=== PATIENT | male | born 1950 | race Caucasian/White ===

== ENCOUNTER → 2016-11-16 | Outpatient (CLI) | payer OTHER ==
[2014-04-26 15:14] VITALS: BP 119/67
[~2016-11-16] MED LIST: NS 100 ML IV 100 ML IV ONE
[2016-11-16 09:54] LABS: CREATININE 1.24 mg/dL (0.70-1.30)
--- NOTE | 2016-11-16 11:25 | CT ---
HISTORY: Right lower quadrant pain Study: CT abdomen pelvis with contrast Comparison: None Technique: Axial post-contrast images with coronal and sagittal reformats. Dose reduction procedures were used with MA/kv adjusted for body size. Findings: The lung bases are clear. The liver, spleen, adrenal glands, and pancreas are within normal limits. No opaque stones are visible within the gallbladder. The right kidney is unobstructed and without st ones. No right ureteral calculi are identified. Multiple small cortical cysts are present. There is left-sided hydronephrosis with dilatation of an extrarenal pelvis proximal to a normal caliber urete r. 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 No left ureteral calculi are identified. 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 No enlarged intraperitoneal or retroperitoneal lymphadenopathy is identified. The appendix is normal. There are no findings sug gestive of diverticulitis or colitis. Examination of the pelvis demonstrated no evidence for pelvic masses, pelvic fluid, or pelvic lymphadenopathy. No lytic or blastic skeletal lesions are identified . 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
== END ==
LOC: RAD 09:23
PROVIDERS: ATTEND Student in an Organized Health Care Education/Training Program
DX: R10.31 Right lower quadrant pain (principal)
CPT/HCPCS: 36415; 74177; 82565; 84520; A4222

== ENCOUNTER 2017-01-12 09:16 | Day surgery (SDC) | payer OTHER ==
[2017-01-12] MEDS ORDERED: EPHEDRINE SULFATE INJ ONE (09:48)
[2017-01-12] MEDS ORDERED: NORCURON INJ 10 MG VIAL ONE (09:48)
[2017-01-12] MEDS ORDERED: DIPRIVAN VIAL ONE (09:48)
[2017-01-12] MEDS ORDERED: XYLOCAINE 2 % (PLAIN) ONE (09:48)
[2017-01-12] MEDS ORDERED: SUPRANE IN ONE (09:48)
[2017-01-12] MEDS ORDERED: NEO-SYNEPHRINE INJ ONE (09:48)
[2017-01-12] MEDS ORDERED: NEOSTIGMINE INJ ONE (09:48)
[2017-01-12] MEDS ORDERED: QUELICIN (OR ANECTINE) ONE (09:48)
[2017-01-12] MEDS ORDERED: VERSED ONE (09:48)
[2017-01-12] MEDS ORDERED: ROBINUL ONE (09:48)
[2017-01-12] MEDS ORDERED: ZOFRAN INJ 4 MG VIAL ONE (09:48)
[2017-01-12] MEDS ORDERED: NS 1000 ML 1,000 ML ONE (09:50)
[2017-01-12] MEDS ORDERED: NS 50 ML IV + SPIKE MINIBAG* 100 ML IV ONE (09:51)
[2017-01-12] MEDS ORDERED: ANCEF VIAL 1 GM ONE (09:51)
[2017-01-12 10:23] LABS: BASOPHILS % (AUTO) 0.6 % (0.2-1.0); EOSINOPHILS # (AUTO) 0.1 x10^3/uL (0.0-0.2); EOSINOPHILS % (AUTO) 1.1 % (0.9-2.9); HEMATOCRIT 43.9 % (42.0-54.0); HEMOGLOBIN 15.1 g/dL (13.5-18.0); LYMPHOCYTES # (AUTO) 1.1 X10^3/uL (1.3-2.9); LYMPHOCYTES % (AUTO) 16.4 % (21.0-51.0); MEAN CORPUSCULAR HEMOGLOBIN 30.8 pg (27.0-34.0); MEAN CORPUSCULAR HGB CONC 34.3 g/dL (33.0-35.0); MEAN CORPUSCULAR VOLUME 89.8 fL (80.0-100.0); MEAN PLATELET VOLUME 8.1 fL (7.4-11.0); MONOCYTES # (AUTO) 0.6 x10^3/uL (0.3-0.8); MONOCYTES % (AUTO) 8.8 % (0.0-13.0); NEUTROPHILS # (AUTO) 5.1 x10^3/uL (2.2-4.8); NEUTROPHILS % (AUTO) 73.1 % (42.0-75.0); PLATELET COUNT 188 X10^3/uL (150.0-450.0); RED BLOOD COUNT 4.89 X10^6/uL (4.7-6.0); RED CELL DISTRIBUTION WIDTH 13.6 % (11.6-16.5)
[2017-01-12 10:38] LABS: ALANINE AMINOTRANSFERASE 35 Units/L (12-78); ALBUMIN 3.7 g/dL (3.4-5.0); ALKALINE PHOSPHATASE 54 Units/L (46-116); ASPARTATE AMINO TRANSFERASE 22 Units/L (15-37); BLOOD UREA NITROGEN 15 mg/dL (7-18); CALCIUM 8.9 mg/dL (8.5-10.1); CARBON DIOXIDE 28.9 mmol/L (21-32); CHLORIDE 99 mmol/L (98-107); CREATININE 1.23 mg/dL (0.70-1.30); GLUCOSE 106 mg/dL (65-99); SODIUM 135 mmol/L (136-145); TOTAL PROTEIN 7.2 g/dL (6.4-8.2); eGFR BLACK RACES > 60 (>60); eGFR NON BLACK RACES > 60 (>60)
[2017-01-12] MEDS ORDERED: FENTANYL INJ 250 mcg ONE (12:06)
[2017-01-12] MEDS ORDERED: NS IRRIGATION 1000 ML 1,000 ML IR ONE (12:17)
[2017-01-12] MEDS ORDERED: LR 1000 ML IV 1,000 ML IV ONE (12:52)
[2017-01-12] MEDS ORDERED: XYLOCAINE 1 % (PLAIN) ONE (13:08)
[2017-01-12] MEDS ORDERED: MARCAINE 0.25% WITH EPI IJ ONE (13:09)
[2017-01-12] MEDS ORDERED: ZOFRAN INJ 4 MG VIAL IVP PRN (14:12)
[2017-01-12] MEDS ORDERED: DILAUDID INJ IVP PRN (14:12)
[2017-01-12] MEDS ORDERED: REGLAN INJ 10 MG VIAL IVP PRN (14:12)
[2017-01-12] MEDS ORDERED: PHENERGAN INJ 25 MG IVP PRN (14:12)
[2017-01-12] MEDS ORDERED: BENADRYL INJ 50 MG VIAL IVP PRN (14:12)
[2017-01-12] MEDS ORDERED: DILAUDID INJ ONE (15:06)
[2017-01-12 15:50] VITALS: BP 127/73
== END 2017-01-12 15:50 | disposition home or self-care (01) | DRG 355 ==
LOC: SURG1 09:16
PROVIDERS: ATTEND Student in an Organized Health Care Education/Training Program
PROC: 0WUF0JZ Supplement Abdominal Wall with Synthetic Substitute, Open Approach (ICD-10-PCS; principal; 2017-01-12 11:00)
DX: K43.2 Incisional hernia without obstruction or gangrene (principal)
CPT/HCPCS: 36415; 80053; 85025; 85610; 85730; A4216; A4222; S0020; J0330; J0690; J1170; J2001; J2250; J2370; J2405; J2710; J3010; J3490; J7120